=== PATIENT | female | born 1980 | race Caucasian/White ===

== ENCOUNTER 2018-04-30 00:52 | Emergency (ER) | payer BC, OTHER ==
[~2018-04-30] VITALS: Ht 182.9 cm; Wt 95.5 kg
[2018-04-30 00:55] VITALS: Ht 182.9 cm; Wt 95.5 kg
[2018-04-30 03:25] VITALS: BP 124/72; PULSE 79; RESP 18
--- NOTE | 2018-04-30 03:38 | ERD ---
ER Documentation Chief Complaint Chief Complaint vaginal bleeding x 15 minutes. states 12 weeks (ELI NETTLES PA-C) HPI 7-year-old female presenting with vaginal bleeding for 15 minutes. Patient believes about 12 weeks . A2. LNMP February 04. Patient is being seen for by her primary doctor Dr. Taina Garcia. Patient has no clots but does have some heavy vaginal bleeding. Medical history is ovarian cysts and asthma. NKDA. Surgical history . Social history denies (ELI NETTLES PA-C) ROS All systems reviewed and are negative except as per history of present illness. (ELI NETTLES PA-C) Allergies Allergies: Coded Allergies: No Known Drug Allergies (Verified Allergy, Unknown, 04/30/18) PMhx/Soc History of Surgery: Yes () Anesthesia Reaction: No Hx Neurological Disorder: No Hx Respiratory Disorders: No Hx Cardiac Disorders: No Hx Psychiatric Problems: No Hx Miscellaneous Medical Probl: Yes (Ovarian Cyst) Hx Alcohol Use: No Hx Substance Use: No Hx Tobacco Use: No Smoking Status: Never smoker (ELI NETTLES PA-C) FmHx Family History: No diabetes, No coronary disease, No other (ELI NETTLES PA-C) Physical Exam Vitals Vital Signs Date Temp Pulse Resp B/P (MAP) Pulse Ox O2 O2 Flow FiO2 Time Delivery Rate 04/30/18 98.1 79 18 124/72 99 Room Air 03:25 (89) 04/30/18 98.0 96 18 122/82 99 00:55 (95) (MATEO NATHAN DO) Physical Exam GENERAL: The patient is well-appearing, well-nourished, in no acute distress CHEST: Clear to auscultation bilaterally. There are no rales, wheezes or rhonchi. HEART: Regular rate and rhythm. No murmurs, clicks, rubs or gallops. No S3 or S4. ABDOMEN:Soft, nontender and nondistended. Good bowel sounds. No rebound or guarding. No gross peritonitis. No gross organomegaly or masses. (ELI NETTLES PA-C) Result Diagram: 04/30/18 0130 Results 24 hrs Laboratory Tests Test 04/30/18 01:30 04/30/18 03:00 04/30/18 03:09 White Blood Count 6.8 10^3/ul Red Blood Count 4.35 10^6/ul Hemoglobin 12.7 g/dl Hematocrit 37.6 % Mean Corpuscular Volume 86.4 fl Mean Corpuscular Hemoglobin 29.2 pg Mean Corpuscular 33.8 g/dl Hemoglobin Concent Red Cell Distribution Width 13.6 % Platelet Count 199 10^3/UL Mean Platelet Volume 10.9 fl Immature Granulocytes % 0.300 % Neutrophils % 56.0 % Lymphocytes % 33.2 % Monocytes % 5.7 % Eosinophils % 4.2 % Basophils % 0.6 % Nucleated Red Blood Cells % 0.0 /100WBC Immature Granulocytes # 0.020 10^3/ul Neutrophils # 3.8 10^3/ul Lymphocytes # 2.3 10^3/ul Monocytes # 0.4 10^3/ul Eosinophils # 0.3 10^3/ul Basophils # 0.0 10^3/ul Nucleated Red Blood Cells # 0.0 10^3/ul Beta HCG, Quantitative 74997.0 mIU/ml Urine Color YELLOW Urine Clarity SLIGHTLY CLOUDY Urine pH 6.0 Urine Specific [place] 1.013 Urine Ketones NEGATIVE mg/dL Urine Nitrite NEGATIVE mg/dL Urine Bilirubin NEGATIVE mg/dL Urine Urobilinogen NEGATIVE mg/dL Urine Leukocyte Esterase NEGATIVE Mauricio/ul Urine Microscopic RBC > 182 /HPF Urine Microscopic WBC 0 /HPF Urine Amorphous Crystals FEW /HPF Urine Hemoglobin 3+ mg/dL Urine Glucose NEGATIVE mg/dL Urine Total Protein NEGATIVE mg/dl Bedside Urine pH (LAB) 7.0 Bedside Urine Protein (LAB) Trace Bedside Urine Glucose (UA) Negative Bedside Urine Ketones (LAB) Negative Bedside Urine Blood 3+ Bedside Urine Nitrite (LAB) Negative Bedside Urine Negative Leukocyte Esterase (L (MATEO NATHAN DO) Procedures/MDM DIAGNOSTIC IMAGING REPORT Patient: JEREMIAH VELAZQUEZ : 1980 Age: 37 Sex: F MR #: [id number] DOS: 04/30/18 0117 Ordering MD: DIANE NETTLES PA-C Location: E Room/Bed: PROCEDURE: Ultrasound of the pelvis. CLINICAL INDICATION: Spotting. . TECHNIQUE: Transabdominal [<and transvaginal>] ultrasound of the pelvis was performed.>] COMPARISON: [<There are no similar studies submitted for comparison.>] FINDINGS: LAST MENSTRUAL PERIOD: 02/04/2018 UTERUS and GESTATIONAL SAC There is a single live intrauterine . Mean gestational sac diameter: 6.78 cm. [place]-rump length (CRL): 7.54 cm. 13 weeks 4 days heart motion: 144 bpm Subchorionic hemorrhage: None OVARIES Right ovary: [ ] Not visualized. Left ovary: 12.7 x 8.9 x 9.3 cm Findings: [<There is Doppler flow to the left ovary.>][ left ovarian cyst measuring 11.2 x 7.9 x 8.9 cm. Cul-de-sac: There is no free fluid. IMPRESSION: [<Single live intrauterine >] with the estimated gestational age of 13 weeks 4 days Left ovarian cyst measuring 11.2 x 7.9 x 8.9 cm. MDM; 37-year-old female presenting with vaginal bleeding. I have low suspicion for ectopic . Hemoglobin stable. There is no signs of urinary tract infection. Patient is Rh+ does not require RhoGam injection. Patient is having heavy bleeding in the ER and passed a large clot which may be fetus. Patient is recommended to return to the ER 2 days for evaluation or sooner if symptoms change or worsen. Patient is hemodynamically stable vitals are stable. His exam is non-concerning. Patient is told symptoms change or worsen to follow-up. All questions answered at time of discharge. (ELI NETTLES PA-C) age correction to HPI: 37 year old female (MATEO NATHAN DO) Departure Diagnosis: Primary Impression: Threatened Condition: Stable Patient Instructions: Possible Miscarriage (Threatened ) Referrals: [facility] YOU HAVE RECEIVED A MEDICAL SCREENING EXAM AND THE RESULTS INDICATE THAT YOU DO NOT HAVE A CONDITION THAT REQUIRES URGENT TREATMENT IN THE EMERGENCY DEPARTMENT. FURTHER EVALUATION AND TREATMENT OF YOUR CONDITION CAN WAIT UNTIL YOU ARE SEEN IN YOUR DOCTORS OFFICE WITHIN THE NEXT 1-2 DAYS. IT IS YOUR RESPONSIBILITY TO MAKE AN APPOINTMENT FOR FOLOW-UP CARE. IF YOU HAVE A PRIMARY DOCTOR --you should call your primary doctor and schedule an appointment IF YOU DO NOT HAVE A PRIMARY DOCTOR YOU CAN CALL OUR PHYSICIAN REFERRAL HOTLINE AT IF YOU CAN NOT AFFORD TO SEE A PHYSICIAN YOU CAN CHOSE FROM THE FOLLOWING [facility] [address] [facility] [address] [facility] [address] [facility] [address] [facility] [address] [address] [facility] [address] Additional Instructions: FOLLOW UP WITH YOUR PRIMARY CARE PHYSICIAN TOMORROW.Return to this facility if you are not improving as expected. ELI NETTLES PA-C Apr 30, 2018 03:38 MATEO NATHAN DO May 02, 2018 16:07
== END 2018-04-30 03:30 | disposition home or self-care (01) ==
LOC: FTE 00:52
DX: O20.0 Threatened abortion (principal); Z3A.13 13 weeks gestation of pregnancy
CPT/HCPCS: 36415; 76801; 81001; 81003; 84702; 85025; 86900; 86901